=== PATIENT | female | born 2000 | race Caucasian/White ===

== ENCOUNTER 2022-06-09 13:00 | Outpatient (RCR) | payer BC, SELFPAY | END 2022-07-20 15:35 | disposition home or self-care (01) | PROVIDERS: Visit Provider Nurse Practitioner Adult Health | DX: M26.609 Unspecified temporomandibular joint disorder, unspecified side (principal); Z51.89 Encounter for other specified aftercare | CPT/HCPCS: 97032; 97110; 97140; 97162 ==

== ENCOUNTER 2023-12-21 19:21 | Emergency (ER) | payer BC, SELFPAY ==
[2023-12-21 19:28] VITALS: BP 111/76; PULSE 81; RESP 18; TEMP 36.8; O2SAT 97; BMI 23.0
--- NOTE | 2023-12-21 20:51 | ED_ITS ---
HPI - General Adult General Date Seen: 12/21/23 Chief complaint: Skin/Abscess/Foreign Body Stated complaint: pain and cognitive issues after synvisc inject TMJ Time Seen by Provider: 12/21/23 20:19 Source: patient Mode of arrival: ambulatory Limitations: no limitations History of Present Illness HPI narrative: Patient is a 23-year-old female presenting for bilateral jaw pain since she got the Synvisc injections for TMJ on 12/02/2023 in [place]. She states she has felt thinks been increased swelling around her jaw, and pain in her ears since this all started and she states it is sore to open her mouth to eat. She states she has had less to eat and since then due to the pain. Does state in the past steroids has helped with her pain but this is the 1st him she is at the Synvisc injection. States she feels like the pain is radiating up her jaw up to her head. Feels different than it is previous chronic migraines which she has taken her migraine medication for no improvement with her symptoms from medication take at home. States she is also having the occasional so unsure feeling lightheaded but that just started today. She states she also feels like she has some memory issues since the pain started. Denies fevers, chills, chest pain, shortness of breath, weakness, numbness, vision changes. Related Data Home Medications ?Medication ?Instructions ?Recorded ?Confirmed rizatriptan 10 mg disintegrating 10 mg PO PRN 12/21/23 tablet sertraline 100 mg tablet 150 mg PO Q24H 12/21/23 12/21/23 spironolactone 50 mg tablet 150 mg PO DAILY 12/21/23 12/21/23 vitamin B complex-vit B12 1 drp sublingual DAILY 12/21/23 12/21/23 Allergies Allergy/AdvReac Type Severity Reaction Status Date / Time ajave Allergy Severe Anaphylaxis Uncoded 12/21/23 19:45 alovera Allergy Mild Rash Uncoded 12/21/23 19:45 Review of Systems Status of ROS: Reports: 10 or more systems reviewed and unremarkable except as noted in History and below [facility] Medical History 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 - 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 and heat (ICD-10) ADD (attention deficit disorder) ?F98.8 - Other specified behavioral and emotional disorders with onset usually occurring in childhood and adolescence (ICD-10) Anxiety and depression ?F41.9 - Anxiety disorder, unspecified (ICD-10) ?F32.A - Depression, unspecified (ICD-10) OCD (obsessive compulsive disorder) ?F42.9 - Obsessive-compulsive disorder, unspecified (ICD-10) Sinus infection ?J32.9 - Chronic sinusitis, unspecified (ICD-10) Teeth grinding ?F45.8 - Other somatoform disorders (ICD-10) Enciso splints ?S86.899A - Other injury of other muscle(s) and tendon(s) at lower leg level, unspecified leg, initial encounter (ICD-10) Migraine ?G43.909 - Migraine, unspecified, not intractable, without status migrainosus (ICD-10) TMJ arthralgia ?M26.629 - Arthralgia of temporomandibular joint, unspecified side (ICD-10) Social History Smoking Status: Never smoker Do you use any of these nicotine containing products: None Second hand tobacco smoke exposure: No How often do you have a drink containing alcohol: 2-4 times a month How many standard drinks containing alcohol do you have on a typical day: 1 or 2 How often do you have six or more drinks on one occasion: Never AUDIT-C Alcohol total score: 2 Non-prescribed substance use: marijuana (any form) Exam Const: Vital Signs, click to edit/add: Vital Signs - 24 hr 12/21/23 19:28 12/21/23 21:34 12/21/23 21:45 Temperature 98.3 F Pulse Rate 58 L 61 Pulse Rate [Pulse Oximeter] 81 Respiratory Rate 18 Blood Pressure [Ri ght Upper Arm] 111/76 Pulse Oximetry 97 97 100 Oxygen Delivery Me thod Room Air Course Vital Signs Vital signs: Initial Vital Signs Temperature 98.3 F 12/21/23 19:28 Temperature Source Temporal Artery Scan 12/21/23 19:28 Pulse Rate 81 12/21/23 19:28 Respiratory Rate 18 12/21/23 19:28 Blood Pressure 111/76 12/21/23 19:28 Blood Pressure Mean 87 12/21/23 19:28 Blood Pressure Position Sitting 12/21/23 19:28 Pulse Oximetry 97 12/21/23 19:28 Oxygen Delivery Method Room Air 12/21/23 19:28 Vital Signs Temperature 98.3 F 12/21/23 19:28 Pulse Rate 81 12/21/23 19:28 Respiratory Rate 18 12/21/23 19:28 Blood Pressure 111/76 12/21/23 19:28 Pulse Oximetry 97 12/21/23 19:28 Oxygen Delivery Method Room Air 12/21/23 19:28 Temperature 98.3 F 12/21/23 19:28 Pulse Rate 61 12/21/23 21:45 Respiratory Rate 18 12/21/23 19:28 Blood Pressure 111/76 12/21/23 19:28 Pulse Oximetry 100 12/21/23 21:45 Oxygen Delivery Method Room Air 12/21/23 19:28 Medications Administered Medications: Discontinued Medications Generic Name Dose Route Start Last Admin Trade Name Hectorq PRN Reason Stop Dose Admin Diphenhydramine HCl 25 mg 12/21/23 20:32 12/21/23 21:09 Diphenhydramine 50 Mg/Ml Inj IVP 12/21/23 20:33 25 mg ONCE ONE Administration Lactated Ringer's 1,000 mls @ 1,000 mls/hr 12/21/23 20:32 12/21/23 21:18 Lactated Ringers 1000 Ml IV 12/21/23 21:31 1,000 mls/hr .Q1H ONE Administration Ketorolac Tromethamine 15 mg 12/21/23 20:32 12/21/23 21:16 Ketorolac 15 Mg/Ml Inj IVP 12/21/23 20:33 15 mg ONCE ONE Administration Metoclopramide HCl 10 mg 12/21/23 20:32 12/21/23 21:12 Metoclopramide Hcl 5 Mg/Ml Inj IVP 12/21/23 20:33 10 mg ONCE ONE Administration Medical Decision Making MDM Narrative Medical decision making narrative: Patient is a 23-year-old female presenting for jaw pain bilaterally. This is been going on since she got her injections for TMJ. Usually she states she gets steroid injections but she got Synvisc instead this time. She states previous steroids have helped with her pain though. She also is complaining about headache and I will try migraine cocktail and Toradol 1st to see if that helps. I spoke to her about possibly doing a CT scan to better evaluate these TMJ joints to see if there is swelling or any other abnormality going on that could be causing her symptoms. At this time she is hesitant to do the CT scan and would rather try medications. This seems reasonable as I am pretty low concern for any abscess or other emergent issues causing this. Will give her Benadryl, Toradol, Reglan, L of lactated Ringer's. She has some improvement in her symptoms. She does states she can open her jaw more now. This is likely from the anti-inflammatory and pain control from the Toradol. I will prescribe her prednisone, Toradol and oxycodone to [facility] and she states she will try and follow up outpatient. Discharge Plan Discharge Clinical Impression: Jaw pain Patient Disposition: Home, Self-Care Condition: Improved Instructions: Temporomandibular Disorder (ED) Additional Instructions: I will prescribe you could steroids, Toradol, oxycodone for your pain. The Toradol is an NSAID to not take other NSAIDs at the same time. Return to emergency department for new or worsening symptoms. Medications prescribed through [facility] Prescriptions: No Action rizatriptan 10 mg tablet,disintegrating 10 mg PO PRN Patient Comments: PLEASE SEE ATTACHED FOR DETAILED DIRECTIONS sertraline 100 mg tablet 150 mg PO Q24H spironolactone 50 mg tablet 150 mg PO DAILY vitamin B complex-vit B12 1 drp sublingual DAILY Follow Up/Referrals: Provider,Not a Local [Primary Care Provider] - Stand Alone Forms: [employer] Info Instructions
[2023-12-21] MEDS: diphenhydrAMINE 50 MG/ML inj 25 MG IVP (21:09)
[2023-12-21] MEDS: METOCLOPRAMIDE HCL 5 MG/ML INJ 10 MG IVP (21:12)
[2023-12-21] MEDS: KETOROLAC 15 MG/ML inj IVP (21:16)
[2023-12-21] MEDS: LACTATED RINGERS 1000 ML 1,000 ML IV (21:18)
[2023-12-21 21:34] VITALS: PULSE 58; O2SAT 97
[2023-12-21 21:45] VITALS: PULSE 61; O2SAT 100
== END 2023-12-21 22:30 | disposition home or self-care (01) ==
PROVIDERS: Emergency Provider Student in an Organized Health Care Education/Training Program
DX: R68.84 Jaw pain (principal)
CPT/HCPCS: 96374; 96375; 99283; J1200; J1885; J2765; J7120

== ENCOUNTER 2024-05-08 01:12 | Emergency (ER) | payer BC, SELFPAY ==
[2024-05-08 01:17] VITALS: BP 120/73; PULSE 82; RESP 16; TEMP 36.4; O2SAT 98; BMI 22.3
--- NOTE | 2024-05-08 01:29 | ED.GENADULT ---
HPI - General Adult General Chief complaint: Flank Pain Stated complaint: possible kidney stones Time Seen by Provider: 05/08/24 01:29 History of Present Illness HPI narrative: Pt reports has bilateral pelvic and left flank pain which developed this evening. Has had painful urination, feeling as if she is not quite emptying when voiding, these urinary symptoms have been ongoing for several days. Rates pain currently as a solid 7 out of 10. 23-year-old young woman presenting to the emergency department with concern I think of potential kidney stone or urinary tract infection. Had an inkling that was not well for a couple of days. Today though really got more intense with pain in bilateral pelvis in the left flank. Has dysuria. Noted spots of blood in the toilet. No fever. Related Data Home Medications ?Medication ?Instructions ?Recorded ?Confirmed rizatriptan 10 mg disintegrating 10 mg PO PRN 12/21/23 tablet sertraline 100 mg tablet 150 mg PO Q24H 12/21/23 05/08/24 spironolactone 50 mg tablet 150 mg PO DAILY 12/21/23 05/08/24 vitamin B complex-vit B12 1 drp sublingual DAILY 12/21/23 05/08/24 Previous Rx's ?Medication ?Instructions ?Recorded fluconazole 150 mg tablet 150 mg PO DAILY #1 tab 05/08/24 Allergies Allergy/AdvReac Type Severity Reaction Status Date / Time aloe vera Allergy Unknown Verified 05/08/24 01:22 agave Allergy Unknown Uncoded 05/08/24 01:22 Review of Systems Status of ROS: Reports: 6 or more systems reviewed and unremarkable except as noted in History and below PFSH [facility] Medical History 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 - 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 and heat (ICD-10) ADD (attention deficit disorder) ?F98.8 - Other specified behavioral and emotional disorders with onset usually occurring in childhood and adolescence (ICD-10) Anxiety and depression ?F41.9 - Anxiety disorder, unspecified (ICD-10) ?F32.A - Depression, unspecified (ICD-10) OCD (obsessive compulsive disorder) ?F42.9 - Obsessive-compulsive disorder, unspecified (ICD-10) Sinus infection ?J32.9 - Chronic sinusitis, unspecified (ICD-10) Teeth grinding ?F45.8 - Other somatoform disorders (ICD-10) Enciso splints ?S86.899A - Other injury of other muscle(s) and tendon(s) at lower leg level, unspecified leg, initial encounter (ICD-10) Migraine ?G43.909 - Migraine, unspecified, not intractable, without status migrainosus (ICD-10) TMJ arthralgia ?M26.629 - Arthralgia of temporomandibular joint, unspecified side (ICD-10) Social History Smoking Status: Never smoker Do you use any of these nicotine containing products: None Second hand tobacco smoke exposure: No How often do you have a drink containing alcohol: 2-4 times a month How many standard drinks containing alcohol do you have on a typical day: 1 or 2 How often do you have six or more drinks on one occasion: Never AUDIT-C Alcohol total score: 2 Non-prescribed substance use: marijuana (any form) Exam Narrative: Exam Narrative: Pleasant. NAD. Breathing easily. Heart in regular rate. Abdomen is soft. Uncomfortable to palpation across the pelvis. No masses appreciated. No flank pain to percussion. Const: Vital Signs, click to edit/add: Vital Signs - 24 hr 05/08/24 01:17 Temperature 97.5 F L Pulse Rate [Pulse Oximeter] 82 Respiratory Rate 16 Blood Pressure [Ri ght Upper Arm] 120/73 Pulse Oximetry 98 Oxygen Delivery Me thod Room Air Documenting provider has reviewed patient's vital signs: yes Course Vital Signs Vital signs: Initial Vital Signs Temperature 97.5 F L 05/08/24 01:17 Temperature Source Temporal Artery Scan 05/08/24 01:17 Pulse Rate 82 05/08/24 01:17 Respiratory Rate 16 05/08/24 01:17 Blood Pressure 120/73 05/08/24 01:17 Blood Pressure Mean 88 05/08/24 01:17 Blood Pressure Position Sitting 05/08/24 01:17 Pulse Oximetry 98 05/08/24 01:17 Oxygen Delivery Method Room Air 05/08/24 01:17 Vital Signs Temperature 97.5 F L 05/08/24 01:17 Pulse Rate 82 05/08/24 01:17 Respiratory Rate 16 05/08/24 01:17 Blood Pressure 120/73 05/08/24 01:17 Pulse Oximetry 98 05/08/24 01:17 Oxygen Delivery Method Room Air 05/08/24 01:17 Temperature 97.5 F L 05/08/24 01:17 Pulse Rate 82 05/08/24 01:17 Respiratory Rate 16 05/08/24 01:17 Blood Pressure 120/73 05/08/24 01:17 Pulse Oximetry 98 05/08/24 01:17 Oxygen Delivery Method Room Air 05/08/24 01:17 Medications Administered Medications: Discontinued Medications Generic Name Dose Route Start Last Admin Trade Name Yamil PRN Reason Stop Dose Admin Ibuprofen 600 mg 05/08/24 01:48 05/08/24 02:40 Ibuprofen 400 Mg Tablet PO 05/08/24 01:49 600 mg ONCE ONE Administration Medical Decision Making MDM Narrative Medical decision making narrative: I understand urine looked particularly bloody upon collection. Story of escalation and degree of apparent discomfort seems more consistent with infectious etiology but ureteral stone is certainly possible. Does not have reproducible discomfort that would seem consistent with adnexal/ovarian issue, cyst or torsion. Discussed treatment here in the emergency department initially she prefers oral intervention only with ibuprofen but reconsiders for IV. In discussing potential plan again then took ibuprofen. Urinalysis returns grossly positive. Discharge well has some concerns about potential vaginal infection and so does self-collect for a wet prep which was negative. Appears generally well here in the emergency department. See patient discharge plan for further discussion Stay well hydrated with water. Prescribing cephalexin and phenazopyridine from [facility]. Can take up to 600 mg of ibuprofen or up to 850 mg of acetaminophen per dose. A urine culture will be pending here. We will call you if there needs to be a change in treatment. Be seen for marked increase in persistent abdominal pain, associated vomiting or fever. I have sent in a prescription of fluconazole to your pharmacy in case you develop what you think might be a yeast infection from these antibiotics. Unfortunately do not have this in the [facility]. Medical Records Medical records reviewed: Yes I reviewed the patient's medical records Lab Data Lab results reviewed: Yes I reviewed the patient's lab results Labs: Lab Results 05/08/24 05/08/24 Range/Units 01:30 02:21 Urine Color Red A (Yellow) Urine Appearance Turbid A (Clear) Urine pH 8.5 (5.0-8.5) Ur Specific [place] 1.025 (1.000-1.030) Urine Protein 3+ A (Negative) Urine Glucose (UA) Negative (Negative) Urine Ketones Negative (Negative) Urine Blood 3+ A (Negative) Urine Nitrite Positive A (Negative) Urine Bilirubin Negative (Negative) Urine Urobilinogen 0.2 (0.2-1.0) Ur Leukocyte Esterase Trace A (Negative) Urine RBC >100 A (0-2) Urine WBC 50-100 A (0-5) Ur Squamous Epith Cells Few (None-Few) Urine Bacteria Moderate A (None) Vaginal Trichomonas No Trichomonas Seen (None Seen) Vaginal Yeast No Yeast Seen (None Seen) Vaginal Clue Cells No Clue Cells Seen (None Seen) Discharge Plan Discharge Clinical Impression: Cystitis Patient Disposition: Home, Self-Care Condition: Stable Additional Instructions: Stay well hydrated with water. Prescribing cephalexin and phenazopyridine from [facility]. Can take up to 600 mg of ibuprofen or up to 850 mg of acetaminophen per dose. A urine culture will be pending here. We will call you if there needs to be a change in treatment. Be seen for marked increase in persistent abdominal pain, associated vomiting or fever. I have sent in a prescription of fluconazole to your pharmacy in case you develop what you think might be a yeast infection from these antibiotics. Unfortunately do not have this in the [facility]. Prescriptions: New fluconazole 150 mg tablet 150 mg PO DAILY Qty: 1 1RF No Action rizatriptan 10 mg tablet,disintegrating 10 mg PO PRN Patient Comments: PLEASE SEE ATTACHED FOR DETAILED DIRECTIONS sertraline 100 mg tablet 150 mg PO Q24H spironolactone 50 mg tablet 150 mg PO DAILY vitamin B complex-vit B12 1 drp sublingual DAILY Follow Up/Referrals: Provider,Not a Local [Primary Care Provider] - Stand Alone Forms: [employer] Info Instructions
[2024-05-08 01:55] LABS: Bilirubin Urine Negative (Negative); Blood Urine 3+ (Negative); Ketones Urine Negative (Negative); Leukocyte Esterase Urine Trace (Negative); Nitrite Urine Positive (Negative); Protein Urine 3+ (Negative); Specific Gravity Urine 1.025 (1.000-1.030); Urobilinogen Urine 0.2 (0.2-1.0); pH Urine 8.5 (5.0-8.5)
[2024-05-08 01:58] LABS: Appearance Urine Turbid (Clear); Color Urine Red (Yellow)
[2024-05-08 02:00] LABS: Bacteria Urine Moderate; Glucose Urine Negative (Negative); RBC Urine >100 (0-2); Squamous Epithelial Cell Urine Few (None-Few); WBC Urine 50-100 (0-5)
[2024-05-08] MEDS: IBUPROFEN 400 MG TABLET 600 MG PO (02:40)
[2024-05-08 02:58] LABS: Clue Cells No Clue Cells Seen (None Seen); Trichomonas No Trichomonas Seen (None Seen); Yeast No Yeast Seen (None Seen)
== END 2024-05-08 03:21 | disposition home or self-care (01) ==
PROVIDERS: Emergency Provider Family Medicine
DX: N30.90 Cystitis, unspecified without hematuria (principal)
CPT/HCPCS: 81001; 87086; 87210; 99283; 99284; A9270